=== PATIENT | female | born 2000 | race Two or more races ===

== ENCOUNTER 2025-01-08 01:28 | Emergency (ER) | payer MEDICAID, SELFPAY ==
[2025-01-08 01:29] VITALS: BMI 33.6
[2025-01-08 01:35] VITALS: BP 122/83; PULSE 73; RESP 17; TEMP 36.8; O2SAT 99
[2025-01-08] MEDS: HYDROcodone/APAP 5/325 TABLET 1 TAB PO (01:46)
[2025-01-08] MEDS: ONDANSETRON ODT 4 MG TABRAP PO (01:46)
[2025-01-08 01:51] LABS: Collection Type, Urine Clean Catch
[2025-01-08 03:51] LABS: HCG Qualitative,Urine Negative
[2025-01-08 03:52] LABS: Alanine Aminotransferase 19 U/L (10-49); Albumin, Serum 4.5 gm/dL (3.5-5.0); Albumin/Globulin Ratio 1.6 (1.2-2.2); Alkaline Phosphatase 100 U/L (46-116); Anion Gap 7 (7-16); Aspartate Amino Transferase 14 U/L (0-34); BUN/Creatinine Ratio 14 Ratio (12-20); Bilirubin,Total 0.3 mg/dL (0.3-1.2); Blood Urea Nitrogen 11 mg/dL (9-23); Calcium 9.4 mg/dL (8.3-10.6); Calcium (Corrected) 9.4 mg/dL (8.5-10.1); Carbon Dioxide 25.3 mMol/L (20.0-31.0); Chloride 110 mMol/L (98-107); Creatinine (Component) 0.8 mg/dL (0.6-1.3); Estimated Creatinine Clearance 114.8 mL/min (>60); Globulin 2.8 gm/dL (2.3-3.5); Glucose 111 mg/dL (74-106); Lipase 37 U/L (12-53); Osmolality,Calculated 283 (275-295); Sodium 142 mMol/L (136-145); Total Protein 7.3 gm/dL (5.7-8.2); eGFR > 60 See Note
[2025-01-08 03:55] LABS: Bilirubin,Urine Negative (Negative); Blood,Urine Negative (Negative); Clarity,Urine Turbid (Clear/Hazy); Color,Urine Yellow (Lt Yel-Yel); Glucose, Urine Negative (Negative); Ketones,Urine Negative (Negative); Leukocyte Esterase,Urine Positive (Negative); Nitrite,Urine Negative (Negative); PH,Urine 5.5 (5.0-7.0); Protein,Urine Negative (Neg - Trace); RBC,Urine 5 /hpf (0-3); Specific Gravity,Urine 1.031 (1.001-1.035); Squamous Epithelial Cell,Urine 16 /hpf (0-5); Urobilinogen,Urine Negative mg/dL (0.0-1.0); WBC,Urine 7 /hpf (0-5)
--- NOTE | 2025-01-08 04:07 | PC.NURSE ---
WE HAD DOWN TIME FROM [id number].
[2025-01-08 04:15] LABS: Basophils % (Auto) 0 % (0-2.5); Eosinophils # (Auto) 0.3 Thou/mm3 (0.0-0.5); Eosinophils % (Auto) 2 % (0-10); Hematocrit 43.7 % (36.0-46.0); Hemoglobin 14.6 g/dL (12.0-16.0); Immature Granulocytes % (Auto) 0 % (0-0); Immature Granulocytes Auto 0.04 Thou/mm3 (0.00-0.00); Lymphocytes # (Auto) 3.3 Thou/mm3 (1.0-4.8); Lymphocytes % (Auto) 26 % (10-50); Mean Corpuscular HGB Conc 33.4 g/dl (31.0-37.0); Mean Corpuscular Hemoglobin 28.9 pg (25.0-35.0); Mean Corpuscular Volume 86 fL (80-100); Monocytes # (Auto) 0.8 Thou/mm3 (0.0-0.8); Monocytes % (Auto) 6 % (0-12); Neutrophils # (Auto) 8.3 Thou/mm3 (1.8-7.7); Neutrophils % (Auto) 65 % (37-80); Nucleated Red Blood Cell % 0 /100 WBC (0); Platelet Count 335 Thou/mm3 (140-440); RDW Standard Deviation 39.8 fL (36.4-46.3); Red Blood Count 5.06 Miln/mm3 (4.00-5.20); White Blood Count 12.8 Thou/mm3 (3.6-11.0)
--- NOTE | 2025-01-08 04:33 | XR_ITS ---
Examination: CT abdomen with intravenous contrast CT pelvis with intravenous contrast 2-D coronal reconstructions 2-D sagittal reconstructions Date and time of exam:January 08, 2025 0549 hours INDICATIONS: Epigastric pain nausea vomiting today, history cholecystectomy 2020. CTDI: vol (mGy) 18.1 DLP: (mGycm) 1027 Technique: Multiple axial sections of the abdomen and pelvis have been obtained. 64 slice high-resolution scanner used. 3 mm axial sections have been obtained, post intravenous injection 60 cc [id number] 2-D sagittal, coronal reconstructions obtained. Low dose protocols were performed. One or more of the following dose reduction techniques were used; automated exposure control, adjustment of the mA and/or KV according to patient size, use of iterative reconstruction technique. Findings: No focal liver or splenic lesions Absent gallbladder No extrahepatic biliary tract dilatation No pancreatic or adrenal mass No renal or ureteral calculi, no hydronephrosis No periappendiceal inflammatory change No pelvic mass Urinary bladder intact The osseous structures are intact IMPRESSION: Absent gallbladder No extrahepatic biliary tract dilatation Negative for pancreatitis No renal or ureteral calculi, no hydronephrosis Normal appendix No bowel obstruction or diverticulitis
--- NOTE | 2025-01-08 04:37 | EDNOTE_ITS ---
ED Abdominal Pain RME/HPI General Chief Complaint: Abdominal Pain Stated complaint: ABD PAIN N/D Time seen by provider: 01/08/25 01:39 Arrival date/time: 01/08/25 01:28 24F with history of gallstones pancreatitis (s/p cholecystectomy) and marijuana use presents to ED with several days of gen ab pain/cramping, N/V, and non- bloody diarrhea. Patient states this feels similar to her previous pancreatitis bout. Limitations: no limitations Related Data Home Medications ?Medication ?Instructions ?Recorded ?Confirmed sertraline 25 mg tablet 25 mg PO QDAY 02/19/2102/19 Previous Rx's ?Medication ?Instructions ?Recorded hydrocodone 5 mg-acetaminophen 325 1 tab PO Q6H #20 ta bs 02/23/21 mg tablet loperamide 2 mg capsule (Imodium 2 mg PO Q6H PRN loose stool #14 01/08/25 A-D) caps ondansetron 4 mg disintegrating 4 mg PO Q8H PRN nausea and 01/08/25 tablet vomiting #10 tabs Allergies Allergy/AdvReac Type Severity Reaction Status Date / Time No Known Allergies Allergy Verified 04/26/22 03:04 Review of Systems Review of Systems Systems Reviewed: All systems reviewed, normal except as documented Constitutional Constitutional: Reports system reviewed and no additional complaints, except as documented, Denies fever(s) and Denies headache(s) ENT Ears, Nose, Mouth, and Throat: Denies disequilibrium and Denies headache(s) Cardiovascular Cardiovascular: Reports system reviewed and no additional complaints, except as documented, Denies chest pain and Denies dyspnea Respiratory Respiratory: Reports system reviewed and no additional complaints, except as documented, Denies cough and Denies dyspnea Gastrointestinal Gastrointestinal: Reports system reviewed and no additional complaints, except as documented, Reports as per HPI, Reports abdominal pain, Reports diarrhea, Reports nausea and Reports vomiting Neurologic Neurologic: Reports system reviewed and no additional complaints, except as documented, Denies confusion, Denies disequilibrium and Denies headache(s) Psychiatric Psychiatric: Denies confusion Past Medical History Past Medical History NEUROLOGIC: Negative Neurological Disorders or Seizures CARDIAC: Negative Cardiac Disorders or Congestive Heart Failure RESPIRATORY: Positive Asthma; Negative Chronic Obstructive Pulmonary Disease (COPD) GASTROINTESTINAL: Positive Gastrointestinal Disorders and Gall Bladder Disease; Negative Hepatitis GENITOURINARY: Negative Genitourinary Disorders or Renal Disease REPRODUCTIVE: Positive Previous Pregnancies MUSCULOSKELETAL: Negative Musculoskeletal Disorders ENDOCRINE: Negative Endocrine Disorders, Diabetes Mellitus Type 1 or Diabetes Mellitus Type 2 HEMATOLOGIC: Negative Blood Disorders or Sickle Cell Disease PSYCHO/SOCIAL: Positive Depression and Depression OTHER HISTORY: Positive Hospitalization and Chicken Pox; Negative Autoimmune Disease, Down Syndrome, Developmental Delay, Shingles, Falls, Blood Transfusions, Blood Transfusion Reaction, Anesthesia Reactions, Organ Transplant, Chemotherapy, Radiation Therapy, Hyperbaric Therapy, MRSA, VRSA, Vancomycin-Resistant Enterococci, Human Immunodeficiency Virus (HIV), Measles, Mumps, Rubella (Urdu Measles), Pertussis, Clostridium Difficile or Cancer Family History FAMILY HISTORY: Positive Family Psychiatric Problems, Family Respiratory Disorders, Family Cardiac Disorders and Family Cancer; Negative Family Gastrointestinal Problems, Family Surgery or Family Anesthesia Reaction Surgical History SURGICAL: Negative Section or Organ Transplant Social History SMOKING STATUS: Never smoker SECOND HAND EXPOSURE: No ED Exam General Limitations: Present no limitations General appearance: Present alert and in no apparent distress Head Head exam: Present atraumatic Eye Eye exam: Present normal appearance, PERRL and EOMI ENT ENT exam: Present normal exam, normal oropharynx and mucous membranes moist Neck Neck exam: Present normal inspection, full ROM and trachea midline Chest Chest inspection: Present normal inspection and symmetric chest wall rise Respiratory Respiratory exam: Present normal lung sounds bilaterally Cardiovascular Cardiovascular exam: Present regular rate, normal rhythm and normal heart sounds Abdominal Exam Abdominal exam: Present soft and normal bowel sounds Abdominal tenderness: Present RLQ, LLQ and epigastrium Extremities Exam Extremities exam: Present normal inspection and full ROM Back Exam Back exam: Present normal inspection and full ROM Neurological Exam Neurological exam: Present alert, oriented X3 and CN II-XII intact Psychiatric Psychiatric exam: Present normal affect and normal mood Skin Skin exam: Present warm, dry, intact and normal color Course Quality Measures none Orders Category Date Time Status CT Screening NOW Care 01/08/25 04:[address] abdomen pelvis w con Stat Exams 01/08/25 04:33 Completed CBC Stat Lab 01/08/25 01:46 Completed CMP [Comprehensive Metabolic Panel] Stat Lab 01/08/25 01:46 Completed HCG Qualitative,Urine Stat Lab 01/08/25 01:46 Completed Lipase Stat Lab 01/08/25 01:46 Completed UA [Urinalysis] Stat Lab 01/08/25 01:46 Completed DiphenhydrAMINE INJ [Benadryl Inj] Med 01/08/25 04:33 Discontinued 12.5 mg IVP X1 ONE HYDROcodone*/APAP 5/325 [Golden 5/325] Med 01/08/25 01:39 Discontinued 1 tab PO X1 ONE Metoclopramide Inj [Reglan Inj] Med 01/08/25 04:33 Discontinued 10 mg IVP X1 ONE Ondansetron Odt [Zofran Odt] Med 01/08/25 01:40 Discontinued 4 mg PO X1 ONE Vital Signs Vital signs: Vital Signs Temperature 98.2 F 01/08/25 01:35 Pulse Rate 73 01/08/25 01:35 Respiratory Rate 17 01/08/25 01:35 Blood Pressure 122/83 01/08/25 01:35 Pulse Oximetry (%) 99 01/08/25 01:35 Oxygen Delivery Method Room Air 01/08/25 01:35 O2 at 99% on RA and WNLs Abdominal Pain MDM MDM Narrative MDM Narrative:: 24F with history of gallstones pancreatitis (s/p cholecystectomy) and marijuana use presents to ED with several days of gen ab pain/cramping, N/V, and non- bloody diarrhea. Patient states this feels similar to her previous pancreatitis bout. Physical exam reveals epigastric and lower ab pain. Patient is afebrile, calm, and alert. Mild leukocytosis. CMP unremarkable. Lipase normal. HCG neg. UA contaminated but no gross UTI or dehydration. Symptoms only mildly improved with Golden and Zofron. CT ordered. Care signed out to colleague. CT turned out to be normal. Likely viral gastroenteritis. Patient data External records reviewed:: [facility] previous records Clinical information provided by:: patient Social determinants that could affect healthcare access:: mental health Patient has the following chronic illnesses:: gallstone pancreatitis How is presenting disease/condition affected by chronic disease/condition?: exacerbated by Evaluation data The following diagnostics were reviewed and interpreted by me:: lab results and radiology exam(s) Lab and/or radiology exams considered but not ordered:: ordered Interpretation Summary: above Medications / Prescriptions Medications or Prescriptions considered but not ordered:: ordered Medication administrations:: Medication Administration History Discontinued Medications Hydrocodone Bitart/Acetaminophen (Hydrocodone/Apap 5/325 Tablet) 1 tab PO X1 ONE Stop: 01/08/25 01:40 Last Admin: 01/08/25 01:46 Dose: 1 tab Documented By: LORRI Diphenhydramine HCl (Diphenhydramine Inj 50 Mg/Ml Vial) 12.5 mg IVP X1 ONE Stop: 01/08/25 04:34 Last Admin: 01/08/25 05:23 Dose: 12.5 mg Documented By: IRENE Metoclopramide HCl (Metoclopramide Inj 5 Mg/Ml Vial 2 Ml) 10 mg IVP X1 ONE; Protocol Stop: 01/08/25 04:34 Last Admin: 01/08/25 05:22 Dose: 10 mg Documented By: IRENE Ondansetron HCl (Ondansetron Odt 4 Mg Tabrap) 4 mg PO X1 ONE; Protocol Stop: 01/08/25 01:41 Last Admin: 01/08/25 01:46 Dose: 4 mg Documented By: LORRI grigsby Consultations Consultation(s) initiated? (list below): No Diagnosis Differential diagnosis abdominal pain: abdominal pain, acute appendicitis, calculus of kidney, constipation, diverticulitis, endometriosis, gastroenteritis, pancreatitis, small bowel obstruction and other (biliary d isease, abscess) Most likely diagnosis given after review of the tests above:: gastroenteritis Admission Indicated Admission indicated?: not indicated Admission Request Was there a request for admission?: No Disposition Plan Disposition Plan: Discharge Discharge Attestation Discharge Attestation: The patient and all family members were given an opportunity to ask questions and understood the discharge instructions. Discharge instructions specifically effects, indications for sooner follow up or return to the emergency department, and the expected course of current diagnosis. Patient condition: Stable Discharge Plan Plan Patient Disposition: HOME (Self Care) Disposition Comment: Stable Prescriptions/Referrals Prescriptions/Med Rec: New loperamide [Imodium A-D] 2 mg capsule 2 mg PO Q6H PRN (Reason: loose stool) Qty: 14 0RF ondansetron 4 mg tablet,disintegrating 4 mg PO Q8H PRN (Reason: nausea and vomiting) Qty: 10 0RF No Action sertraline 25 mg tablet 25 mg PO QDAY Patient Comments: TAKE 1 TABLET BY MOUTH EVERY DAY hydrocodone-acetaminophen 5-325 mg tablet 1 tab PO Q6H MDD 4 Qty: 20 0RF Referrals: Ajay Felix MD [Primary Care Provider] - In 1 week Problem List Clinical Impression: Viral gastroenteritis Patient/Caregiver Discharge Instructions Education Materials: Viral Gastroenteritis Additional Instructions: Please follow up with your primary care doctor in the next 24-48hrs for any worsening symptoms return here immediately Print Language: Polish Stand Alone Forms: Alison Award Info., Work/School Release, Patient Portal Info Letter PA/MERCHANDISE FLOW TEAM LEADER Supervising Physician PA/MERCHANDISE FLOW TEAM LEADER Supervising Physician: Dr. pitt
[2025-01-08] MEDS: METOCLOPRAMIDE INJ 5 MG/ML VIAL 2 ML 10 MG IVP (05:22)
[2025-01-08] MEDS: DiphenhydrAMINE INJ 50 MG/ML VIAL 12.5 MG IVP (05:23)
[2025-01-08 07:43] VITALS: BP 104/75; PULSE 80; RESP 16; TEMP 36.6; O2SAT 99
== END 2025-01-08 07:45 | disposition home or self-care (01) ==
PROVIDERS: Physician Assistant; Emergency Provider Emergency Medicine; PCP Family Medicine
DX: A08.4 Viral intestinal infection, unspecified (principal)
CPT/HCPCS: 36415; 74177; 80053; 81001; 81025; 83690; 85025; 96374; 96375; 99285; A4649; J1200; J2765; Q0162; Q9967; A9270